=== PATIENT | female | born 1990 | race Caucasian/White ===

== ENCOUNTER 2018-06-11 14:33 | Inpatient (IN) | payer BC ==
[2018-06-11] MEDS ORDERED: Acetaminophen TAB* 325 MG PO PRN (15:08)
[2018-06-11] MEDS ORDERED: Witch Hazel PAD* JAR TOPICAL PRN (15:08)
[2018-06-11] MEDS ORDERED: Glycerin ADULT SUPP PR PRN (15:08)
[2018-06-11] MEDS ORDERED: Ibuprofen TAB* 600 MG PO PRN (15:08)
[2018-06-11] MEDS ORDERED: Dibucaine 1% 28.35 GM TUBE PR PRN (15:08)
--- NOTE | 2018-06-11 15:47 | HP ---
General Information - Reason for Visit bleeding, leaking fluid , and pain - General Information Maternal Age: 28 Grav: 1 Estimated Due Date: 11/01/18 Determined By: Early Ultrasound Gestational Age in Weeks/Days: 19 4/7 weeks Maternal Blood Type and Rh: B Positive - Results this Serology/RPR Result: Non-Reactive Rubella Result: Immune HBsAg Result: Negative HIV Result: Negative Past Medical History Delivery History: See Records Pertinent Past Medical History: See Records Pertinent Past Surgical History: See Records Pertinent Family History: See Records - Antepartal Records Antepartal Records: Reviewed, Complicated by: - letrazole ovulation/ PCOS Review of Systems Constitutional: Uncomfortable CV Complaint: No Respiratory: Shortness of Breath: No Gastrointestinal: No Nausea/Vomiting Genitourinary: Bleeding, Leaking Fluid, No Dysuria Musculoskeletal: Back Pain, Contractions Neurological: No Headache Exam p: 87 T: 99.1 PSo2: 100 - Exam Breast: Breast Exam Deferred CVA: No CVA Tenderness Extremities: No Edema Heart: Normal Rhythm/Heart Sounds HEENT: No Significant Findings Lungs: Clear Bilaterally Rectal: Rectal Exam Deferred Reflexes: DTR 2+ Thyroid: No Thyromegaly Targeted Exam Findings Effacement: Complete Presenting Part: Breech - Pt presents with buldging bag leaking fluid/bleeding with feet seen at introitus behind bag/ pt went on to deliver both fetus A and B percipitously Membrane Status: Bulging EFM Findings - External Monitor Findings Contractions: Regular, Strong Assessment/Plan - Assessment Pt 28 yo G1 presents with bulging bag and delivered both twins precipitously. - Obstetrical Risk Factors Obstetrical Risk Factors: - Plan Plan: Admit - Anticipate Vaginal Delivery - Pt delivered non viable tiwns. Grief counseling given with pastoral care. Plan on work up for possible abruption as fused placentas appeared to have significant clot behind them. Pt to have other lab work done and will opt to have autopsy and karyotpe done
[2018-06-11] MEDS ORDERED: Lactated Ringers 1000 ML Bag* 1,000 ML IV SCH (16:00)
[2018-06-11] MEDS ORDERED: Oxytocin in LR* 20 UNITS/1,000 ML BAG IVPB SCH (16:00)
[2018-06-11] MEDS ORDERED: Simethicone TAB* 80 MG TAB.CHEW PO SCH (17:30)
[2018-06-11 21:00] LABS: Hematocrit 34 % (35-47); Hemoglobin 11.5 g/dl (12.0-16.0); Mean Corpuscular HGB Conc 33 g/dl (31-36); Mean Corpuscular Hemoglobin 30 pg (27-31); Mean Corpuscular Volume 89 fL (80-97); Platelet Count 318 10^3/ul (150-450); Red Blood Count 3.89 10^6/ul (4.00-5.40); Red Cell Distribution Width 13 % (10.5-15); White Blood Count 24.7 10^3/ul (3.5-10.8)
[2018-06-11] MEDS ORDERED: Docusate CAP* 100 MG PO SCH (21:00)
[2018-06-11 21:27] LABS: ABS Basophils 0 10^3/ul (0-0.2); ABS Eosinophils 0 10^3/ul (0-0.6); ABS Lymphocytes 1.3 10^3/ul (1.0-4.8); ABS Monocytes 0.8 10^3/ul (0-0.8); ABS Neutrophils 22.6 10^3/ul (1.5-7.7); ABS Nucleated RBC 0 10^3/ul; Eosinophil % 0 %; Lymphocyte % 5.5 %; Nucleated Red Blood Cells % 0; TSH (Thyroid Stimulating Horm) 1.1 mcIU/mL (0.34-5.60)
[2018-06-11 21:29] LABS: Free T4 0.75 ng/dL (0.61-1.12)
[2018-06-12 05:51] LABS: ABS Basophils 0 10^3/ul (0-0.2); ABS Eosinophils 0 10^3/ul (0-0.6); ABS Lymphocytes 2.7 10^3/ul (1.0-4.8); ABS Monocytes 1.3 10^3/ul (0-0.8); ABS Neutrophils 14.1 10^3/ul (1.5-7.7); ABS Nucleated RBC 0 10^3/ul; Eosinophil % 0 %; Hematocrit 33 % (35-47); Hemoglobin 11.2 g/dl (12.0-16.0); Lymphocyte % 14.7 %; Mean Corpuscular HGB Conc 34 g/dl (31-36); Mean Corpuscular Hemoglobin 30 pg (27-31); Mean Corpuscular Volume 89 fL (80-97); Mean Platelet Volume 6.9 fL (7.4-10.4); Nucleated Red Blood Cells % 0; Platelet Count 283 10^3/ul (150-450); Red Blood Count 3.74 10^6/ul (4.00-5.40); Red Cell Distribution Width 13 % (10.5-15); White Blood Count 18.1 10^3/ul (3.5-10.8)
[2018-06-12 08:23] VITALS: BP 120/74
[2018-06-12] MEDS ORDERED: Ferrous Gluconate TAB* 324 MG TAB PO SCH (09:00)
== END 2018-06-12 12:20 | disposition home or self-care (01) | DRG 560 ==
LOC: MCHOBOUT 14:33 → MCHOB 14:57
PROVIDERS: ADMIT Obstetrics & Gynecology; ATTEND Midwife
PROC: 10E0XZZ Delivery of Products of Conception, External Approach (ICD-10-PCS; principal; 2018-06-11)
DX: O60.12X0 Preterm labor second trimester with preterm delivery second trimester, not applicable or unspecified (principal); Z37.4 Twins, both stillborn; O62.3 Precipitate labor; O30.002 Twin pregnancy, unspecified number of placenta and unspecified number of amniotic sacs, second trimester; Z3A.19 19 weeks gestation of pregnancy
CPT/HCPCS: 36415; 81229; 84439; 84443; 85025; 86038; 86147; 87070; 87077; 87184; 87186; 88305; 88309; 99283; A9270-GY

== ENCOUNTER 2019-04-21 23:40 | Inpatient (IN) | payer BC ==
[2019-04-22 00:35] LABS: Urine Appearance Clear; Urine Bilirubin Negative (Negative); Urine Blood 1+ (Negative); Urine Color Yellow; Urine Glucose Negative (Negative); Urine Ketones Negative (Negative); Urine Nitrite Negative (Negative); Urine Protein 1+(30 mg/dL) (Negative); Urine Specific Gravity 1.017 (1.010-1.030); Urine Urobilinogen Negative (Negative)
[2019-04-22] MEDS ORDERED: ceFAZolin 2 GM PREMIX in ORs 2 GM/50 ML BAG ONE (00:36)
[2019-04-22 00:37] LABS: Urine Bacteria Absent (Absent); Urine Red Blood Cell 3+(>10/hpf) (Absent); Urine Squamous Epithelial Cell Present (Absent); Urine White Blood Cell Trace(0-5/hpf) (Absent)
[2019-04-22 00:50] LABS: ABS Lymphocytes 2.4 10^3/ul (1.0-4.8); ABS Monocytes 0.7 10^3/ul (0-0.8); ABS Neutrophils 5.4 10^3/ul (1.5-7.7); Eosinophil % 0.3 %; Hematocrit 37 % (35-47); Hemoglobin 12.9 g/dL (12.0-16.0); Lymphocyte % 28.3 %; Mean Corpuscular HGB Conc 35 g/dL (31-36); Mean Corpuscular Hemoglobin 30 pg (27-31); Mean Corpuscular Volume 88 fL (80-97); Mean Platelet Volume 7.5 fL (7.4-10.4); Platelet Count 289 10^3/uL (150-450); Red Blood Count 4.24 10^6 /uL (3.70-4.87); Red Cell Distribution Width 13 % (10-15); White Blood Count 8.6 10^3/uL (3.5-10.8)
[2019-04-22] MEDS ORDERED: CEFAZOLIN IVPB ONE (00:53)
[2019-04-22] MEDS ORDERED: Buffered Lidocaine 1% SYRIN* 1 ML/SYRINGE INTRADERM ONE (00:53)
[2019-04-22] MEDS ORDERED: Lactated Ringers 1000 ML Bag* 1,000 ML IV ONE (00:53)
[2019-04-22] MEDS ORDERED: [UNRECOGNIZED DRUG - OTHER] IVPB ONE (00:53)
[2019-04-22 00:56] LABS: Urine Benzodiazepine Screen None Detected (None Detect); Urine Opiates Screen None Detected (None Detect)
[2019-04-22] MEDS ORDERED: Lactated Ringers 1000 ML Bag* 1,000 ML IV SCH ×2 (01:00→03:00)
--- NOTE | 2019-04-22 01:05 | HP ---
General Information - General Information Maternal Age: 29 Grav: 2 Para: 0 SAB: 2 IEA: 0 Estimated Due Date: 05/18/19 Determined By: IVF Maternal Blood Type and Rh: B Positive - Results this Serology/RPR Result: Non-Reactive Rubella Result: Immune HBsAg Result: Negative HIV Result: Negative GBS Culture Result: Positive Past Medical History Delivery History: See Records - 18 week twin loss Pertinent Past Medical History: See Records - GBS Bacteriuria, Hypothyroidism, GDMA1 Pertinent Past Surgical History: See Records Pertinent Family History: See Records - Antepartal Records Antepartal Records: Reviewed, Complicated by: - GDMA1, Hx of 18 week twin loss, GBS Bacteriuria, Hypothyroidism Review of Systems Constitutional: Uncomfortable CV Complaint: No Respiratory: Shortness of Breath: No Gastrointestinal: No Nausea/Vomiting, Normal Bowel Movement Genitourinary: Leaking Fluid, No Dysuria, No Bleeding Musculoskeletal: No Complaint, No Epigastric Pain Neurological: No Headache, No Visual Changes Movement: Normal Exam Allergies/Adverse Reactions: Allergies amoxicillin Allergy (Verified 03/01/19 18:37) Hives Penicillins Allergy (Verified 03/01/19 18:37) Hives Lab Values - Entire Visit: Laboratory Tests 04/22/19 04/22/19 04/22/19 00:00 00:00 00:00 WBC RBC Hgb Hct MCV MCH MCHC RDW Plt Count MPV Neut % (Auto) Lymph % (Auto) [place] % (Auto) Eos % (Auto) Baso % (Auto) Absolute Neuts (auto) Absolute Lymphs (auto) Absolute Monos (auto) Absolute Eos (auto) Absolute Basos (auto) Absolute Nucleated RBC Nucleated RBC % Urine Color Yellow Urine Appearance Clear Urine pH 6.0 Ur Specific [place] 1.017 Urine Protein 1+(30 mg/dl) A Urine Ketones Negative Urine Blood 1+ A Urine Nitrate Negative Urine Bilirubin Negative Urine Urobilinogen Negative Ur Leukocyte Esterase Negative Urine WBC (Auto) Trace(0-5/hpf) Urine RBC (Auto) 3+(>10/hpf) A Ur Squamous Epith Cells Present A Urine Bacteria Absent Urine Glucose Negative Vag Amniotic Fld Detect Positive Urine Opiates Screen None detected Ur Barbiturates Screen None detected Ur Phencyclidine Scrn None detected Ur Amphetamines Screen None detected U Benzodiazepines Scrn None detected Urine Cocaine Screen None detected U Cannabinoids Screen None detected 04/22/19 00:35 WBC 8.6 RBC 4.24 Hgb 12.9 Hct 37 MCV 88 MCH 30 MCHC 35 RDW 13 Plt Count 289 MPV 7.5 Neut % (Auto) 62.9 Lymph % (Auto) 28.3 [place] % (Auto) 8.1 Eos % (Auto) 0.3 Baso % (Auto) 0.4 Absolute Neuts (auto) 5.4 Absolute Lymphs (auto) 2.4 Absolute Monos (auto) 0.7 Absolute Eos (auto) 0.0 Absolute Basos (auto) 0.0 Absolute Nucleated RBC 0.0 Nucleated RBC % 0.0 Urine Color Urine Appearance Urine pH Ur Specific [place] Urine Protein Urine Ketones Urine Blood Urine Nitrate Urine Bilirubin Urine Urobilinogen Ur Leukocyte Esterase Urine WBC (Auto) Urine RBC (Auto) Ur Squamous Epith Cells Urine Bacteria Urine Glucose Vag Amniotic Fld Detect Urine Opiates Screen Ur Barbiturates Screen Ur Phencyclidine Scrn Ur Amphetamines Screen U Benzodiazepines Scrn Urine Cocaine Screen U Cannabinoids Screen - Measurements Height: 5 ft 4 in Weight: 173 lb Weight in lbs: 173.211982 Body Mass Index (BMI): 29.7 Pre- Weight: 167 lb Weight Gained This : 6 lbs and 0 ozs - Exam Breast: Breast Exam Deferred CVA: No CVA Tenderness Extremities: No Edema Heart: Normal Rhythm/Heart Sounds HEENT: No Significant Findings Lungs: Clear Bilaterally Rectal: Rectal Exam Deferred Reflexes: DTR 2+ Thyroid: No Thyromegaly - Abdominal Exam Abdomen Exam: Non-Tender - Ultrasound/Biophysical Profile Ultrasound Status: Bedside Exam Ultrasound Findings: Breech Targeted Exam Findings Estimated Weight: 6# Presenting Part: Breech Membrane Status: SROM Amniotic Fluid Evaluation: Gross Rupture, Positive ROM Plus EFM Findings - External Monitor Findings Baseline Heart Rate: 125 External Monitor Findings: Accelerations Present, No Pattern of Variable or Late Decelerations, Variability Moderate, Baseline Stable Contractions: Moderate, 45-90 Seconds Contraction Frequency: q 3-4 minutes Assessment/Plan - Assessment 29 y/o at 36w2d with pre-term SROM, BREECH, sommer regularly and uncomfortable Hx of 18 week twin loss, suspected related to GBS GBS Bacteriuria Current gestation Hypothyroidism GDMA1 RH+/Rubella Immune - Obstetrical Risk Factors Obstetrical Risk Factors: GBS Positive - Plan Plan: Expedite C/S Delivery, Antibiotic Prophylaxis Plan Comment: Admit Start Cefazolin 2 Grams now Proceed to OR for delivery secondary to Breech presentation, SROM in labor, last diet was 6pm Consent obtained Anesthesia and Neonatology notified - Date/Time of Admission Date of Admission: 04/22/19 Time of Admission: 00:45
[2019-04-22] MEDS ORDERED: Phenylephrine 40 MCG/ML SYRINGE ONE (01:07)
[2019-04-22] MEDS ORDERED: OXYTOCIN* 10 UNITS/ML 1 ML VIAL ONE (01:07)
[2019-04-22] MEDS ORDERED: Morphine PF AMP (0.5MG/ML)* 5 MG/10 ML AMP ONE (01:07)
[2019-04-22] MEDS ORDERED: Sodium Citrate/Citric Acid* 15 ML UDC ONE (01:13)
[2019-04-22] MEDS ORDERED: Ondansetron INJ* 2 MG/ML VIAL ONE (01:48)
[2019-04-22] MEDS ORDERED: Scopolamine 1.5 mg* PATCH ONE (01:49)
[2019-04-22] MEDS ORDERED: Ondansetron INJ* 2 MG/ML VIAL IV PRN ×2 (01:52→01:53)
[2019-04-22] MEDS ORDERED: Naloxone* 0.4 MG/ML 1 ML VIAL IV PRN ×2 (01:52→01:53)
[2019-04-22] MEDS ORDERED: fentaNYL* 50 MCG/ML 2 ML VIAL (100 MCG VIAL) IV PRN (01:52)
[2019-04-22] MEDS ORDERED: Nalbuphine* 10 MG/ML 1 ML VIAL IV PRN (01:53)
[2019-04-22] MEDS ORDERED: oxyCODONE/Acetamin 5/325 MG* TAB PO PRN ×2 (01:53)
[2019-04-22] MEDS ORDERED: diPHENhydraMINE IV* 50 MG/ML 1 ml VIAL (BENADRYL) IV PRN (01:53)
[2019-04-22] MEDS ORDERED: Ketorolac INJ* 30 MG/ML 1 ML VIAL ONE (02:00)
[2019-04-22] MEDS ORDERED: Dibucaine 1% 28.35 GM TUBE PR PRN (02:15)
[2019-04-22] MEDS ORDERED: Witch Hazel PAD* JAR TOPICAL PRN (02:15)
[2019-04-22] MEDS ORDERED: Glycerin ADULT SUPP PR PRN (02:15)
[2019-04-22] MEDS ORDERED: Zolpidem TAB* 5 MG PO PRN (02:15)
[2019-04-22] MEDS ORDERED: Oxytocin in LR* 20 UNITS/1,000 ML BAG IVPB SCH (03:00)
[2019-04-22] MEDS: Ketorolac INJ* 30 MG/ML 1 ML VIAL IV PRN ×3 (08:31→20:44)
[2019-04-22] MEDS: Docusate CAP* 100 MG PO SCH ×3 (08:35→20:43)
[2019-04-22] MEDS: Simethicone TAB* 80 MG TAB.CHEW PO SCH ×4 (08:35→20:44)
[2019-04-22] MEDS ORDERED: Acetaminophen TAB* 325 MG PO PRN (17:30)
[2019-04-22] MEDS: Levothyroxine TAB* 25 MCG TAB PO SCH (20:43)
[2019-04-22] MEDS: oxyCODONE/Acetamin 5/325 MG* TAB PO PRN (20:44)
--- NOTE | 2019-04-22 22:46 | OP ---
OPERATIVE REPORT: DATE OF OPERATION: 04/22/19 - [facility] DATE OF : [birth year] SURGEON: Radha Jones MD GIFTED PROGRAM TEACHER: Dr. Daniel Umanzor. ANESTHESIOLOGIST: Dr. Carlos. ANESTHESIA: Spinal. PRE-OP DIAGNOSIS: A 36-2/7 weeks intrauterine , leena breech, premature rupture of membranes, actively aware. POST-OP DIAGNOSIS: A 36-2/7 weeks intrauterine , leena breech, premature rupture of membranes, actively aware. Delivered. OPERATIVE PROCEDURE: Primary low-transverse section. ESTIMATED BLOOD LOSS: 600 cc. URINE OUTPUT: 50 cc of concentrated yellow urine. FLUIDS: 2000 cc of crystalloid. FINDINGS: Revealed a leena breech male , Apgars 8 and 9. Weight was 5 pounds 10 ounces. No nuchal cord. No meconium. Clear amniotic fluid without purulent odor. Normal-appearing tubes and ovaries bilaterally. Normal- appearing placenta, 3-vessel cord manually extracted intact. COMPLICATIONS: None apparent. DISPOSITION: Stable to recovery room. DESCRIPTION OF PROCEDURE: The patient was placed in dorsal lithotomy position. Abdomen was prepped and draped in a sterile standard fashion. Anesthesia was tested to appropriate level. The patient was identified with the universal protocol for correct procedure, patient, and position. Incision was made 2 fingerbreadths above the pubic symphysis with a scalpel and this was carried down to the fascia. The fascia was scored in the midline, extended laterally and superiorly using Nieves scissors and superiorly and inferiorly using blunt and sharp dissection from the rectus muscle. The peritoneum was then entered bluntly. Bladder blade was inserted. Lower uterine segment was identified, tented up with an Allis. Incision was made through the myometrium to the membranes. The incision was extended laterally and superiorly using bandage scissors. Infant was found to be left sacrum anterior leena breech, so the buttocks were delivered and then left then right shoulder delivered. Head delivered spontaneously. Cord was milked and cord was then clamped, doubly cut , and then was handed off to awaiting flat bed operator. Appropriate cord blood was then sent. Placenta was then manually extracted, intact 3-vessel cord. Uterus was exteriorized. Cavity was wiped clean, noted to be free of any membranes and free of any septum. The incision itself was reapproximated using 0-Vicryl x2, first layer running locked, second layer running imbricated. Tubes and ovaries were noted to have a normal appearance. Uterus was returned intraabdominally. Colic gutters were lavaged. Hemostasis assured at the hysterotomy site. The peritoneum was then reapproximated using 3-0 Vicryl in a running fashion. Subfascial area was visualized. Hemostasis assured and the fascia itself was reapproximated using 0-Vicryl x2 in a running fashion. A fat stitch was then placed using 2-0 Vicryl in an interrupted fashion. The skin was then reapproximated using 4-0 Monocryl in a subcuticular fashion. Mastisol and Steri's were applied. All sponges, instrument, and blade counts were correct throughout the case. The patient tolerated the procedure well and went to recovery room in stable condition. [id number]/CPS #: [id number] MTDD
[2019-04-23] MEDS: oxyCODONE/Acetamin 5/325 MG* TAB PO PRN ×5 (03:02→21:47)
[2019-04-23] MEDS: Ibuprofen TAB* 600 MG PO PRN ×3 (03:05→18:39)
[2019-04-23 06:56] LABS: ABS Lymphocytes 2.1 10^3/ul (1.0-4.8); ABS Monocytes 0.7 10^3/ul (0-0.8); ABS Neutrophils 7.7 10^3/ul (1.5-7.7); Hematocrit 31 % (35-47); Hemoglobin 10.6 g/dL (12.0-16.0); Lymphocyte % 19.8 %; Mean Corpuscular HGB Conc 35 g/dL (31-36); Mean Corpuscular Hemoglobin 30 pg (27-31); Mean Corpuscular Volume 87 fL (80-97); Mean Platelet Volume 7.2 fL (7.4-10.4); Platelet Count 233 10^3/uL (150-450); Red Cell Distribution Width 13 % (10-15); White Blood Count 10.5 10^3/uL (3.5-10.8)
[2019-04-23] MEDS: Docusate CAP* 100 MG PO SCH ×3 (08:33→21:45)
[2019-04-23] MEDS: Simethicone TAB* 80 MG TAB.CHEW PO SCH ×4 (08:34→21:45)
[2019-04-23] MEDS ORDERED: Ferrous Gluconate TAB* 324 MG TAB PO SCH (09:00)
--- NOTE | 2019-04-23 11:39 | PN ---
Progress Note - Progress Note Date of Service: 04/23/19 Note: POST OPERATIVE/ PROGRESS NOTE S: POD#1 s/p pLTCS at 36w2d secondary SROM, breech presentation. Baby initially required admission to NICU and O2 therapy, doing better now, in room, still having labs performed. Pt doing well today. voiding spontaneously. Pain well controlled. Tolerating a regular diet. Up and ambulating. O: AVSS, afebrile Gen: nad, aaox3 CV: RRR Pulm: CTABl Abd: soft, nd, nttp, fundus firm below the U Incision: c/d/i with sutures and steris Ext: warm, nttp A/P: 28 y/o s/p pLTCS at 36w2d secondary to SROM, breech presentation: - AVSS, afebrile, hemodynamically stable, Hct 31 post op - GDMA1 - fasting FSB 65 - Voiding spontaneously - Tolerating regular diet - Pain well controlled - Incision c/d/i - RH+/Rubella Imune - Continue routine post operative/ care DO SHAYY Connelly
[2019-04-23] MEDS: Levothyroxine TAB* 25 MCG TAB PO SCH (21:44)
[2019-04-24] MEDS: oxyCODONE/Acetamin 5/325 MG* TAB PO PRN ×5 (03:36→23:58)
[2019-04-24] MEDS: Ibuprofen TAB* 600 MG PO PRN ×3 (03:36→18:43)
[2019-04-24] MEDS: Simethicone TAB* 80 MG TAB.CHEW PO SCH ×4 (08:55→20:47)
[2019-04-24] MEDS: Docusate CAP* 100 MG PO SCH ×3 (08:55→20:47)
[2019-04-24] MEDS ORDERED: Calcium Carbonate CHEW TAB* 500 MG (TUMS) PO PRN (20:34)
[2019-04-24] MEDS: Levothyroxine TAB* 25 MCG TAB PO SCH (20:47)
[2019-04-24] MEDS ORDERED: Famotidine TAB* 20 MG PO SCH (21:00)
[2019-04-25] MEDS ORDERED: Scopolamine PATCH Remove* 1 NOTE MISC PATCH OFF ONE (01:53)
[2019-04-25] MEDS: Ibuprofen TAB* 600 MG PO PRN (02:55)
[2019-04-25 06:50] VITALS: BP 134/86
[2019-04-25] MEDS: oxyCODONE/Acetamin 5/325 MG* TAB PO PRN ×2 (07:30→13:27)
[2019-04-25] MEDS: Simethicone TAB* 80 MG TAB.CHEW PO SCH ×2 (09:57→13:27)
[2019-04-25] MEDS: Docusate CAP* 100 MG PO SCH ×2 (09:57→13:27)
== END 2019-04-25 15:51 | disposition home or self-care (01) | DRG 540 ==
LOC: MCHOBOUT 23:40 → MCHOB 04-22 00:34
PROVIDERS: ADMIT Obstetrics & Gynecology; ATTEND Obstetrics & Gynecology
PROC: 4A1HXCZ Monitoring of Products of Conception, Cardiac Rate, External Approach (ICD-10-PCS; 2019-04-22)
PROC: 10D00Z1 Extraction of Products of Conception, Low, Open Approach (ICD-10-PCS; principal; 2019-04-22 01:15)
DX: O42.013 Preterm premature rupture of membranes, onset of labor within 24 hours of rupture, third trimester (principal); O32.1XX0 Maternal care for breech presentation, not applicable or unspecified; O99.284 Endocrine, nutritional and metabolic diseases complicating childbirth; E03.9 Hypothyroidism, unspecified; O99.824 Streptococcus B carrier state complicating childbirth; O24.429 Gestational diabetes mellitus in childbirth, unspecified control; Z3A.36 36 weeks gestation of pregnancy; Z37.0 Single live birth; Z79.890 Hormone replacement therapy; Z88.0 Allergy status to penicillin
CPT/HCPCS: 36415; 80307; 81003; 81015; 84112; 85025; 86850; 86900; 86901; 87086; 88307; A9270-GY; J0690; J1200; J1885; J2405; J2590

== ENCOUNTER 2021-01-21 09:51 | Inpatient (IN) ==
[2021-01-21] MEDS ORDERED: ceFAZolin 2 GM in NS PREMIX 2 GM/100 ML BAG IVPB ONE (10:41)
[2021-01-21] MEDS ORDERED: Lactated Ringers 1000 ml BAG 1,000 ML IV ONE (10:41)
[2021-01-21] MEDS ORDERED: Buffered Lidocaine 1% SYRIN 1 ml INTRADERM ONE (10:41)
[2021-01-21] MEDS ORDERED: Oxytocin in LR 20 UNITS/1,000 ML BAG IVPB SCH (11:00)
[2021-01-21] MEDS ORDERED: Lactated Ringers 1000 ml BAG 1,000 ML IV SCH (11:00)
[2021-01-21 11:44] LABS: ABS Lymphocytes 1.8 10^3/ul (1.0-4.8); ABS Monocytes 0.6 10^3/ul (0-0.8); ABS Neutrophils 5.3 10^3/ul (1.5-7.7); Hematocrit 33 % (35-47); Hemoglobin 11.5 g/dL (12.0-16.0); Lymphocyte % 23.3 %; Mean Corpuscular HGB Conc 35 g/dL (31-36); Mean Corpuscular Hemoglobin 29 pg (27-31); Mean Corpuscular Volume 84 fL (80-97); Platelet Count 276 10^3/uL (150-450); Red Blood Count 3.98 10^6 /uL (3.70-4.87); Red Cell Distribution Width 13 % (10-15); White Blood Count 7.7 10^3/uL (3.5-10.8)
[2021-01-21 12:44] LABS: Urine Benzodiazepine Screen None Detected (None Detect); Urine Cannabinoids Screen None Detected (None Detect); Urine Opiates Screen None Detected (None Detect)
[2021-01-21] MEDS ORDERED: OBEPIDURAL 250 ML EPIDURAL ONE (21:14)
[2021-01-22 00:11] LABS: Urine Appearance Cloudy; Urine Bilirubin Negative (Negative); Urine Blood 2+ (Negative); Urine Color Yellow; Urine Glucose Negative (Negative); Urine Ketones 1+ (Negative); Urine Nitrite Negative (Negative); Urine Protein Negative (Negative); Urine Urobilinogen Negative (Negative)
[2021-01-22 00:20] LABS: Urine Bacteria Absent (Absent); Urine Red Blood Cell 3+(>10/hpf) (Absent); Urine Squamous Epithelial Cell Present (Absent); Urine White Blood Cell Trace(0-5/hpf) (Absent)
[2021-01-22] MEDS ORDERED: Glycerin ADULT 2.4 gm SUPP PR PRN (00:38)
[2021-01-22] MEDS ORDERED: witch hazeL 43% TOP.SOLN 200 ML PHA COMPOUND TOPICAL PRN (00:59)
[2021-01-22] MEDS ORDERED: Oxytocin in LR 20 UNITS/1,000 ML BAG IVPB SCH (01:00)
[2021-01-22] MEDS ORDERED: Lidocaine 1% VIAL 10 MG/ML VIAL ONE (01:00)
[2021-01-22] MEDS ORDERED: Lactated Ringers 1000 ml BAG 1,000 ML IV SCH (01:00)
[2021-01-22] MEDS: Dibucaine 1% OINT 28.35 GM TUBE PR PRN ×2 (01:33→21:00)
[2021-01-22] MEDS: ceFAZolin VIAL 1 GM in NS 0.9% 50 ML 50 ML IVPB SCH (07:16)
[2021-01-23 07:27] LABS: ABS Lymphocytes 2.9 10^3/ul (1.0-4.8); ABS Monocytes 0.7 10^3/ul (0-0.8); ABS Neutrophils 5.8 10^3/ul (1.5-7.7); Hematocrit 30 % (35-47); Hemoglobin 10.3 g/dL (12.0-16.0); Lymphocyte % 30.3 %; Mean Corpuscular HGB Conc 34 g/dL (31-36); Mean Corpuscular Hemoglobin 29 pg (27-31); Mean Corpuscular Volume 84 fL (80-97); Mean Platelet Volume 7.6 fL (7.4-10.4); Platelet Count 255 10^3/uL (150-450); Red Blood Count 3.59 10^6 /uL (3.70-4.87); Red Cell Distribution Width 13 % (10-15); White Blood Count 9.4 10^3/uL (3.5-10.8)
[2021-01-23] MEDS: Dibucaine 1% OINT 28.35 GM TUBE PR PRN (18:00)
[2021-01-24 07:51] VITALS: BP 119/75
== END 2021-01-24 10:37 | disposition home or self-care (01) | DRG 542 ==
LOC: MCHOBOUT 09:51 → MCHOB 10:30
PROVIDERS: ADMIT Obstetrics & Gynecology; ATTEND Obstetrics & Gynecology